=== PATIENT | female | born 1940 | race Caucasian/White ===

== ENCOUNTER 2020-10-24 10:28 | Observation (INO) | payer MEDICARE, OTHER ==
[~2020-10-24] VITALS: Ht 157.5 cm; Wt 47.1 kg
--- NOTE | 2020-10-24 12:04 | ED Integumentary General ---
General Chief Complaint: Skin/Wound Problems Stated Complaint: LEISON ON LEFT SIDE Nursing Triage Note: PT HAS LESION TO LEFT LATERAL BREAST THAT SHE STATES STARTED DRAINING YESTERDAY. Source: patient, family Exam Limitations: no limitations History of Present Illness Date Seen by Provider: Oct 24, 2020 Time Seen by Provider: 11:59 Initial Comments This is an 80-year-old female who presents to the ER with complaints of abscess and drainage of her left lateral breast. States that this has been an ongoing issue since around December of last year. She has been given multiple antibiotics which she states has made her very sick and was unable to take them. When she notified her primary care provider in April of 2020, they said there is nothing more they can do. States this week the area has began to swell even mor e and began draining again. States she has never had ultrasound or mammography. She denies fever, chills, cough, shortness of breath, nausea, vomiting, diarrhea. Currently denies pain. Allergies and Home Medications Allergies Coded Allergies: ciprofloxacin (Verified Allergy, Unknown, 10/24/20) codeine (Verified Allergy, Unknown, 10/24/20) doxycycline (Verified Allergy, Unknown, 10/24/20) Home Medications Ibuprofen 200 Mg Tablet, 600 MG PO Q6H PRN for PAIN-MILD (1-4), (Reported) TAKES 3 (200MG) TABLETS Last Action: Reviewed Patient Home Medication List Home Medication List Reviewed: Yes Review of Systems Review of Systems Constitutional: no symptoms reported EENTM: no symptoms reported Respiratory: no symptoms reported Cardiovascular: no symptoms reported Gastrointestinal: no symptoms reported Genitourinary: no symptoms reported Musculoskeletal: see HPI Skin: see HPI Endocrine: No Symptoms Reported Hematologic/Lymphatic: No Symptoms Reported Past Iylfwtz-Mpgjuy-Cjytqr Hx Patient Social History Alcohol Use: Denies Use Smoking Status: Never a Smoker Recent Infectious Disease Expo: No Recent Hopitalizations: No Seasonal Allergies Seasonal Allergies: No Past Medical History Surgeries: Yes Orthopedic Respiratory: No Cardiac: No Neurological: No Genitourinary: No Gastrointestinal: No Musculoskeletal: No Endocrine: No HEENT: Yes Cataract Cancer: No Psychosocial: No Integumentary: No Blood Disorders: No Physical Exam Vital Signs Vital Signs - First Documented 10/24/20 10:56 Temp 36.1 Pulse 94 Resp 16 Capillary Refill : Less Than 3 Seconds General Appearance: WD/WN, no apparent distress HEENT: PERRL/EOMI, normal ENT inspection, pharynx normal Neck: full range of motion, normal inspection Cardiovascular: regular rate, rhythm, no edema, no murmur Respiratory: lungs clear, normal breath sounds Gastrointestinal: normal bowel sounds, non tender, soft Extremities: normal range of motion, non-tender, normal inspection Neurologic/Psychiatric: no motor/sensory deficits, alert, normal mood/affect, oriented x 3 Skin: normal color, warm/dry Skin Problem Location: generalized, other (left breast 3 o'clock ) Skin Problem Character: other (diffuse erythema, swelling along left lateral breast into axillae and chest wall. Golf ball size red/pink ulcer. ) Lymphatic: axilla node tender (L) Progress/Results/Core Measures Results/Orders Lab Results Laboratory Tests Test 10/24/20 11:50 10/24/20 13:35 Range/Units White Blood Count 7.7 4.3-11.0 10^3/uL Red Blood Count 4.31 3.80-5.11 10^6/uL Hemoglobin 13.0 11.5-16.0 g/dL Hematocrit 39 35-52 % Mean Corpuscular Volume 90 80-99 fL Mean Corpuscular Hemoglobin 30 25-34 pg Mean Corpuscular Hemoglobin Concent 33 32-36 g/dL Red Cell Distribution Width 12.8 10.0-14.5 % Platelet Count 205 130-400 10^3/uL Mean Platelet Volume 11.0 9.0-12.2 fL Immature Granulocyte % (Auto) 0 % Neutrophils (%) (Auto) 73 42-75 % Lymphocytes (%) (Auto) 15 12-44 % Monocytes (%) (Auto) 11 0-12 % Eosinophils (%) (Auto) 0 0-10 % Basophils (%) (Auto) 0 0-10 % Neutrophils # (Auto) 5.7 1.8-7.8 10^3/uL Lymphocytes # (Auto) 1.1 1.0-4.0 10^3/uL Monocytes # (Auto) 0.8 0.0-1.0 10^3/uL Eosinophils # (Auto) 0.0 0.0-0.3 10^3/uL Basophils # (Auto) 0.0 0.0-0.1 10^3/uL Immature Granulocyte # (Auto) 0.0 0.0-0.1 10^3/uL Sodium Level 137 135-145 MMOL/L Potassium Level 3.7 3.6-5.0 MMOL/L Chloride Level 102 98-107 MMOL/L Carbon Dioxide Level 24 21-32 MMOL/L Anion Gap 11 5-14 MMOL/L Blood Urea Nitrogen 6 L 7-18 MG/DL Creatinine 0.71 0.60-1.30 MG/DL Estimat Glomerular Filtration Rate > 60 BUN/Creatinine Ratio 8 Glucose Level 99 70-105 MG/DL Calcium Level 9.9 8.5-10.1 MG/DL Corrected Calcium 9.7 8.5-10.1 MG/DL Total Bilirubin 0.7 0.1-1.0 MG/DL Aspartate Amino Transf (AST/SGOT) 25 5-34 U/L Alanine Aminotransferase (ALT/SGPT) 22 0-55 U/L Alkaline Phosphatase 99 40-136 U/L Total Protein 8.7 H 6.4-8.2 GM/DL Albumin 4.3 3.2-4.5 GM/DL Lactic Acid Level 1.73 0.50-2.00 MMOL/L My Orders Orders - LAUREN BEACH MINERALOGY PROFESSOR Cbc With Automated Diff (10/24/20 12:04) Comprehensive Metabolic Panel (10/24/20 12:04) Us Breast Complete Left (10/24/20 12:04) Ct Chest W (10/24/20 13:22) Lactic Acid Analyzer (10/24/20 13:22) Blood Culture (10/24/20 13:22) Iohexol Injection (Omnipaque 350 Mg/Ml 1 (10/24/20 13:30) Di Iv Start (Assessment) .IV start (10/24/20 13:27) Received Contrast (Hold Metformin- Contr (10/24/20 13:30) Sodium Chloride Flush (Catheter Flush Sy (10/24/20 13:30) Ns (Ivpb) (Sodium Chloride 0.9% Ivpb Bag (10/24/20 13:30) Medications Given in ED Current Medications Medications Dose Ordered Sig/Kimberlee Route Start Time Stop Time Status Last Admin Dose Admin Iohexol 75 ml ONCE ONCE IV 10/24/20 13:30 10/24/20 13:31 DC 10/24/20 14:34 58 ML Sodium Chloride 10 ml NEEDED PRN IV 10/24/20 13:30 10/24/20 14:34 10 ML Sodium Chloride 100 ml ONCE ONCE IV 10/24/20 13:30 10/24/20 13:31 DC 10/24/20 14:34 80 ML Vital Signs/I&O 10/24/20 10:56 Temp 36.1 Pulse 94 Resp 16 B/P (MAP) Diagnostic Imaging Diagonstic Imaging: Ultrasound Comments [facility] [place] [place] NAME: KORY FAJARDO [facility] REC#: [id number] PT STATUS: REG ER : 1940 PHYSICIAN: LAUREN BEACH APRN ADMIT DATE: 10/24/20/ER Draft Date of Exam:10/24/20 US BREAST COMPLETE LEFT INDICATION: Left breast mass. FINDINGS: Sonographic interrogation of the area of mass in the left breast demonstrates a large solid mass at the 1-2 o'clock location of the left breast measuring approximately 11 cm x 4 cm x 5 cm. This extends to the skin surface. There is internal vascularity and findings are suggestive of a large breast neoplasm. Evaluation of the left axilla does show numerous enlarged left axillary lymph nodes with the largest measuring 1.8 x 2.1 cm. The findings are concerning for metastatic disease. IMPRESSION: Large left breast mass concerning for breast neoplasm with enlarged left axillary lymph nodes consistent with axillary metastatic disease. The lesion in the breast would be amenable to ultrasound-guided core biopsy. ACR BI-RADS Category 4: Suspicious abnormality. Dictated on workstation # [id number] Dict: 10/24/20 1301 Trans: 10/24/20 1309 [id number] Interpreted by: MARC DIAZ MD Electronically signed by: Reviewed: Reviewed by Me Diagonstic Imaging: CT Plain Films/CT/US/NM/MRI: chest Comments [facility] [place] [place] NAME: KORY FAJARDO [facility] REC#: [id number] PT STATUS: ADM Lazaro : 1940 PHYSICIAN: LAUREN BEACH APRN ADMIT DATE: 10/24/20/4TH Draft Date of Exam:10/24/[address] CHEST W TECHNIQUE: Multiple contiguous axial images were obtained through the chest with the use of intravenous contrast. All CT scans use one or more of the following dose optimizing techniques: automated exposure control, MA and/or KvP adjustment based on a patient size and exam type, or iterative reconstruction. INDICATION: Left breast mass. COMPARISON: Left breast ultrasound from earlier same day. FINDINGS: Lungs and airway: No endoluminal nodule within the trachea. No pulmonary mass or nodule to be suspicious for pulmonary metastases. Pleura: No pleural effusion or pneumothorax. Heart and mediastinum: Large centrally necrotic mass within the lateral left breast measures 5.4 x 4.2 x 7.3 cm. There are multiple enlarged level 1 left axillary lymph nodes. There is also a level 2 lymph node measuring 1.5 x 1.5 cm in the left axilla. No supraclavicular lymphadenopathy. No mediastinal or hilar lymphadenopathy. Heart is normal in size without pericardial effusion. Upper abdomen: 2 large heterogeneous enhancing masses are present in the right hepatic lobe. The larger of the 2 measures 5.5 x 4.2 cm. Musculoskeletal: No lytic or blastic skeletal lesions. IMPRESSION: 1. Large left breast mass has central necrosis and is most compatible primary breast cancer. 2. Two large masses within the right hepatic lobe of the liver highly likely due to distant metastases. 3. Regional metastases in the left axilla with enlarged level 1 and level 2 lymph nodes. Dictated on workstation # [id number] Dict: 10/24/20 1453 Trans: 10/24/20 1504 [id number] Interpreted by: TASIA GOMEZ MD Electronically signed by: Reviewed: Reviewed by La Departure Communication (Admissions) Time/Spoke to Admitting Phy: 14:[address] Varghese. Accepted patient for observation admission. Time/Spoke to Consulting Phy: 14:[address] Gamble. Will consult. Impression Primary Impression: Cellulitis of breast Additional Impression: Mass of left breast Disposition: ADMITTED INPATIENT Condition: Stable Admissions Decision to Admit Reason: Admit from ER (General) Decision to Admit/Date: Oct 24, 2020 Time/Decision to Admit Time: 14:02 Copy Copies To 1: EMILY GAMBLE STORMY D MINERALOGY PROFESSOR Oct 24, 2020 12:04
[2020-10-24 12:14] LABS: BASOPHILS % (AUTO) 0 % (0-10); EOSINOPHILS % (AUTO) 0 % (0-10); HEMATOCRIT 39 % (35-52); LYMPHOCYTES # (AUTO) 1.1 10^3/uL (1.0-4.0); LYMPHOCYTES % (AUTO) 15 % (12-44); MEAN CORPUSCULAR HEMOGLOBIN 30 pg (25-34); MEAN CORPUSCULAR HGB CONC 33 g/dL (32-36); MEAN CORPUSCULAR VOLUME 90 fL (80-99); MONOCYTES # (AUTO) 0.8 10^3/uL (0.0-1.0); MONOCYTES % (AUTO) 11 % (0-12); NEUTROPHILS # (AUTO) 5.7 10^3/uL (1.8-7.8); NEUTROPHILS % (AUTO) 73 % (42-75); PLATELET COUNT 205 10^3/uL (130-400); WHITE BLOOD COUNT 7.7 10^3/uL (4.3-11.0)
[2020-10-24 12:19] LABS: ALBUMIN 4.3 GM/DL (3.2-4.5)
[2020-10-24 12:20] LABS: CHLORIDE 102 MMOL/L (98-107); POTASSIUM 3.7 MMOL/L (3.6-5.0); SODIUM 137 MMOL/L (135-145)
[2020-10-24 12:21] LABS: CALCIUM 9.9 MG/DL (8.5-10.1)
[2020-10-24 12:22] LABS: GLUCOSE 99 MG/DL (70-105); TOTAL PROTEIN 8.7 GM/DL (6.4-8.2)
[2020-10-24 12:23] LABS: CARBON DIOXIDE 24 MMOL/L (21-32)
[2020-10-24 12:24] LABS: BILIRUBIN,TOTAL 0.7 MG/DL (0.1-1.0)
[2020-10-24 12:26] LABS: ALKALINE PHOSPHATASE 99 U/L (40-136); CREATININE SERUM 0.71 MG/DL (0.60-1.30); GFR ESTIMATED > 60
[2020-10-24 12:27] LABS: BUN/CREATININE RATIO 8
[2020-10-24 12:29] LABS: ALANINE AMINOTRANSFERASE 22 U/L (0-55)
--- NOTE | 2020-10-24 13:10 | Diagnostic Imaging Report ---
INDICATION: Left breast mass. FINDINGS: Sonographic interrogation of the area of mass in the left breast demonstrates a large solid mass at the 1-2 o'clock location of the left breast measuring approximately 11 cm x 4 cm x 5 cm. This extends to the skin surface. There is internal vascularity and findings are suggestive of a large breast neoplasm. Evaluation of the left axilla does show numerous enlarged left axillary lymph nodes with the largest measuring 1.8 x 2.1 cm. The findings are concerning for metastatic disease. IMPRESSION: Large left breast mass concerning for breast neoplasm with enlarged left axillary lymph nodes consistent with axillary metastatic disease. The lesion in the breast would be amenable to ultrasound-guided core biopsy. ACR BI-RADS Category 4: Suspicious abnormality. Dictated by: Dictated on workstation # [id number]
[2020-10-24] MEDS ORDERED: IOHEXOL 350 MG/ML 100 ML (OMNIPAQUE 350) VIAL IV ONE (13:30)
[2020-10-24] MEDS ORDERED: HOLD METFORMIN - RECEIVED CONTRAST 20 ML VIAL IV SCH (13:30)
[2020-10-24] MEDS ORDERED: NS 100 ML (IVPB) BAG IV ONE (13:30)
[2020-10-24] MEDS ORDERED: CATHETER FLUSH 10 ML SYR IV PRN (13:30)
[2020-10-24] MEDS ORDERED: IBUPROFEN TABLET 200 MG TAB PO PRN (15:00)
[2020-10-24] MEDS ORDERED: ACETAMINOPHEN 325 MG TABLET PO PRN (15:00)
[2020-10-24] MEDS ORDERED: ENOXAPARIN 30 MG/0.3 ML (LOVENOX) SYR SC SCH (15:00)
--- NOTE | 2020-10-24 15:04 | Diagnostic Imaging Report ---
CT CHEST W TECHNIQUE: Multiple contiguous axial images were obtained through the chest with the use of intravenous contrast. All CT scans use one or more of the following dose optimizing techniques: automated exposure control, MA and/or KvP adjustment based on a patient size and exam type, or iterative reconstruction. INDICATION: Left breast mass. COMPARISON: Left breast ultrasound from earlier same day. FINDINGS: Lungs and airway: No endoluminal nodule within the trachea. No pulmonary mass or nodule to be suspicious for pulmonary metastases. Pleura: No pleural effusion or pneumothorax. Heart and mediastinum: Large centrally necrotic mass within the lateral left breast measures 5.4 x 4.2 x 7.3 cm. There are multiple enlarged level 1 left axillary lymph nodes. There is also a level 2 lymph node measuring 1.5 x 1.5 cm in the left axilla. No supraclavicular lymphadenopathy. No mediastinal or hilar lymphadenopathy. Heart is normal in size without pericardial effusion. Upper abdomen: 2 large heterogeneous enhancing masses are present in the right hepatic lobe. The larger of the 2 measures 5.5 x 4.2 cm. Musculoskeletal: No lytic or blastic skeletal lesions. IMPRESSION: 1. Large left breast mass has central necrosis and is most compatible primary breast cancer. 2. Two large masses within the right hepatic lobe of the liver highly likely due to distant metastases. 3. Regional metastases in the left axilla with enlarged level 1 and level 2 lymph nodes. Dictated by: Dictated on workstation # [id number]
[2020-10-24 15:05] VITALS: BP 182/96
[2020-10-24] MEDS ORDERED: IBUP-2473 PO (15:15)
[2020-10-24 15:30] VITALS: BP 182/96
[2020-10-24] MEDS ORDERED: diphenhydrAMINE 25 MG TAB (BENADRYL) PO PRN (15:45)
[2020-10-24] MEDS: ceFAZolin 1,000 MG/SWFI 10 ML IV PUSH IV SCH ×4 (16:05→22:18)
[2020-10-24] MEDS: NS IV 1000 ML 1,000 ML IV SCH ×2 (16:05→23:20)
[2020-10-24 16:22] VITALS: BP 182/96
--- NOTE | 2020-10-24 18:20 | Consultation - Surgery ---
History of Present Illness History of Present Illness Patient Consulted On(inga/time) 10/24/20 18:14 Time Seen by Provider: 17:59 History of Present Illness Surgery asked to consult regarding Left breast mass, r/o abscess. HPI per ED: This is an 80-year-old female who presents to the ER with com plaints of abscess and drainage of her left lateral breast. States that this has been an ongoing issue since around December of last year. She has been given multiple antibiotics which she states has made her very sick and was unable to take them. When she notified her primary care provider in April of 2020, they said there is nothing more they can do. States this week the area has began to swell even more and began draining again. States she has never had ultrasound or mammography. She denies fever, chills, cough, shortness of breath, nausea, vomiting, diarrhea. Currently denies pain. When I spoke to pt she states it started with a "tick bite". Got a little better and then a few months ago at primary care they told her they couldn't do anything about the cellulitis. She thought that the raised lump and firmness have only been there "3 weeks". When I asked her and her daughter what they thought it could be; they both said cancer. Pt has very little pain in the area and stated it only started draining because she carried around a ladder yesterday. Allergies and Home Medications Allergies Coded Allergies: ciprofloxacin (Verified Allergy, Unknown, 10/24/20) codeine (Verified Allergy, Unknown, 10/24/20) doxycycline (Verified Allergy, Unknown, 10/24/20) Home Medications Ibuprofen 200 Mg Tablet, 600 MG PO Q6H PRN for PAIN-MILD (1-4), (Reported) TAKES 3 (200MG) TABLETS Last Action: Reviewed Patient Home Medication List Home Medication List Reviewed: Yes Past Oamvplm-Odgltz-Jkedhx Hx Patient Social History Smoking Status: Never a Smoker Recent Hopitalizations: No Alcohol Use?: No Have you traveled recently?: No Seasonal Allergies Seasonal Allergies: No Surgeries History of Surgeries: Yes Surgeries: Orthopedic Respiratory History of Respiratory Disorde: No Cardiovascular History of Cardiac Disorders: No Neurological History of Neurological Disord: No Genitourinary History of Genitourinary Disor: No Gastrointestinal History of Gastrointestinal Di: No Musculoskeletal History of Musculoskeletal Dis: No Endocrine History of Endocrine Disorders: No HEENT History of HEENT Disorders: Yes HEENT Disorders: Cataract Cancer History of Cancer: No Psychosocial History of Psychiatric Problem: No Integumentary History of Skin or Integumenta: No Blood Transfusions History of Blood Disorders: No Family Medical History Significant Family History: Cancer (Father of colon cancer, she wasn't sure what her mother of ( at 54) she states she was too young to remember. Brother had prostate CA. Daughter suggested her grandmother of breast cancer and pt said no; it wasn't that.) Review of Systems-General Constitutional: malaise, weight loss (at least 20lbs since last december, admits to decreased appetite) EENTM: vision loss, dental problems; No mouth pain, No mouth swelling, No epistaxis Respiratory: No cough, No dyspnea on exertion Cardiovascular: No chest pain, No edema, No palpitations Gastrointestinal: No abdominal pain, No jaundice; loss of appetite; No nausea, No vomiting Genitourinary: No dysuria, No frequency, No hematuria; other (recently treated for UTI) Musculoskeletal: back pain, joint pain, joint swelling, muscle stiffness Skin: No change in color, No change in hair/nails Psychiatric/Neurological: Denies Anxiety, Denies Depressed, Denies Seizure, Denies Tremors Other pt denies any hx of abnormal bleeding or bruising Physical Exam-General Problems Physical Exam Vital Signs Vital Signs - First Documented 10/24/20 10/24/20 10/24/20 10:56 14:37 15:05 Temp 36.1 Pulse 94 Resp 16 B/P (MAP) 178/100 Pulse Ox 98 O2 Delivery Room Air Capillary Refill : Less Than 3 Seconds General Appearance: WD/WN, no apparent distress, thin Eyes: Bilateral Eye PERRL, Bilateral Eye EOMI HEENT: pharynx normal; No scleral icterus (R), No scleral icterus (L); other (upper and lower dentures) Neck: non-tender, supple Respiratory: lungs clear, normal breath sounds, no respiratory distress, no accessory muscle use Cardiovascular: regular rate, rhythm, no murmur Gastrointestinal: non tender, soft, no organomegaly Genital/Rectal: other (Breast exam done with nurse in the room, pt has golf ball size mass protruding almost through skin and firm area above and below this into the axilla, mass is in axillary tail of breast tissue. Breast itself is soft with no masses) Back: no CVA tenderness, no vertebral tenderness Extremities: no pedal edema, no calf tenderness, normal capillary refill Neurologic/Psychiatric: wedger machine II-XII nml as tested, alert, normal mood/affect, oriented x 3 Skin: normal color, warm/dry Lymphatic: no adenopathy (neck or groin), axilla node tender (L) Data Review Labs Laboratory Tests 10/24/20 11:50: White Blood Count 7.7, Red Blood Count 4.31, Hemoglobin 13.0, Hematocrit 39, Mean Corpuscular Volume 90, Mean Corpuscular Hemoglobin 30, Mean Corpuscular Hemoglobin Concent 33, Red Cell Distribution Width 12.8, Platelet Count 205, Mean Platelet Volume 11.0, Immature Granulocyte % (Auto) 0, Neutrophils (%) (Auto) 73, Lymphocytes (%) (Auto) 15, Monocytes (%) (Auto) 11, Eosinophils (%) (Auto) 0, Basophils (%) (Auto) 0, Neutrophils # (Auto) 5.7, Lymphocytes # (Auto) 1.1, Monocytes # (Auto) 0.8, Eosinophils # (Auto) 0.0, Basophils # (Auto) 0.0, Immature Granulocyte # (Auto) 0.0, Sodium Level 137, Potassium Level 3.7, Chloride Level 102, Carbon Dioxide Level 24, Anion Gap 11, Blood Urea Nitrogen 6L, Creatinine 0.71, Estimat Glomerular Filtration Rate > 60, BUN/Creatinine Ratio 8, Glucose Level 99, Calcium Level 9.9, Corrected Calcium 9.7, Total Bilirubin 0.7, Aspartate Amino Transf (AST/SGOT) 25, Alanine Aminotransferase (ALT/SGPT) 22, Alkaline Phosphatase 99, Total Protein 8.7H, Albumin 4.3 10/24/20 13:35: Lactic Acid Level 1.73 Radiology Date of Exam:10/24/20 US BREAST COMPLETE LEFT INDICATION: Left breast mass. FINDINGS: Sonographic interrogation of the area of mass in the left breast demonstrates a large solid mass at the 1-2 o'clock location of the left breast measuring approximately 11 cm x 4 cm x 5 cm. This extends to the skin surface. There is internal vascularity and findings are suggestive of a large breast neoplasm. Evaluation of the left axilla does show numerous enlarged left axillary lymph nodes with the largest measuring 1.8 x 2.1 cm. The findings are concerning for metastatic disease. IMPRESSION: Large left breast mass concerning for breast neoplasm with enlarged left axillary lymph nodes consistent with axillary metastatic disease. The lesion in the breast would be amenable to ultrasound-guided core biopsy. ACR BI-RADS Category 4: Suspicious abnormality. Dictated by: Dictated on workstation # [id number] Dict: 10/24/20 1301 Trans: 10/24/20 1615 [id number] Interpreted by: MARC DIAZ MD Electronically signed by: MARC DIAZ MD 10/24/20 1613 Date of Exam:10/24/[address] CHEST W TECHNIQUE: Multiple contiguous axial images were obtained through the chest with the use of intravenous contrast. All CT scans use one or more of the following dose optimizing techniques: automated exposure control, MA and/or KvP adjustment based on a patient size and exam type, or iterative reconstruction. INDICATION: Left breast mass. COMPARISON: Left breast ultrasound from earlier same day. FINDINGS: Lungs and airway: No endoluminal nodule within the trachea. No pulmonary mass or nodule to be suspicious for pulmonary metastases. Pleura: No pleural effusion or pneumothorax. Heart and mediastinum: Large centrally necrotic mass within the lateral left breast measures 5.4 x 4.2 x 7.3 cm. There are multiple enlarged level 1 left axillary lymph nodes. There is also a level 2 lymph node measuring 1.5 x 1.5 cm in the left axilla. No supraclavicular lymphadenopathy. No mediastinal or hilar lymphadenopathy. Heart is normal in size without pericardial effusion. Upper abdomen: 2 large heterogeneous enhancing masses are present in the right hepatic lobe. The larger of the 2 measures 5.5 x 4.2 cm. Musculoskeletal: No lytic or blastic skeletal lesions. IMPRESSION: 1. Large left breast mass has central necrosis and is most compatible primary breast cancer. 2. Two large masses within the right hepatic lobe of the liver highly likely due to distant metastases. 3. Regional metastases in the left axilla with enlarged level 1 and level 2 lymph nodes. Dictated by: Dictated on workstation # [id number] Dict: 10/24/20 1453 Trans: 10/24/20 1659 [id number] Interpreted by: TASIA GOMEZ MD Electronically signed by: TASIA GOMEZ MD 10/24/20 9742 Assessment/Plan Assessment/Plan Assessment/Plan Left breast mass - most likely Cancer Liver masses - most likely metastasis Left axillary lymph nodes I discussed with pt and her daughter basically 3 options; 1) do nothing 2) tiffanie- adjuvant chemo to shrink tumor and then surgery 3) surgery. We talked a little about side effects of chemo and her main thing (daughter's also) was quality of life. I told them that first step should be a true-cut biopsy, so that we can get a diagnosis and then go from there. I don't think pt has to stay in hospital for entire work-up. I think she can get sent home and then see me in my office to go over pathology results and discuss all options. They were ok with this plan. EMILY GAMBLE DO Oct 24, 2020 18:20
[2020-10-24 20:55] VITALS: BP 137/82
[2020-10-24 23:37] VITALS: BP 122/70
[2020-10-25 04:07] VITALS: BP 150/75
[2020-10-25] MEDS: ceFAZolin 1,000 MG/SWFI 10 ML IV PUSH IV SCH ×2 (05:54)
[2020-10-25 06:06] LABS: BASOPHILS % (AUTO) 1 % (0-10); EOSINOPHILS # (AUTO) 0.1 10^3/uL (0.0-0.3); EOSINOPHILS % (AUTO) 1 % (0-10); HEMATOCRIT 35 % (35-52); HEMOGLOBIN 11.3 g/dL (11.5-16.0); LYMPHOCYTES # (AUTO) 1.4 10^3/uL (1.0-4.0); LYMPHOCYTES % (AUTO) 23 % (12-44); MEAN CORPUSCULAR HEMOGLOBIN 30 pg (25-34); MEAN CORPUSCULAR HGB CONC 33 g/dL (32-36); MEAN CORPUSCULAR VOLUME 91 fL (80-99); MEAN PLATELET VOLUME 10.8 fL (9.0-12.2); MONOCYTES # (AUTO) 0.8 10^3/uL (0.0-1.0); MONOCYTES % (AUTO) 12 % (0-12); NEUTROPHILS # (AUTO) 3.9 10^3/uL (1.8-7.8); NEUTROPHILS % (AUTO) 63 % (42-75); PLATELET COUNT 187 10^3/uL (130-400); WHITE BLOOD COUNT 6.2 10^3/uL (4.3-11.0)
[2020-10-25 06:20] LABS: CHLORIDE 104 MMOL/L (98-107); POTASSIUM 3.6 MMOL/L (3.6-5.0); SODIUM 137 MMOL/L (135-145)
[2020-10-25 06:21] LABS: GLUCOSE 87 MG/DL (70-105)
[2020-10-25 06:23] LABS: CARBON DIOXIDE 23 MMOL/L (21-32)
[2020-10-25 06:25] LABS: CREATININE SERUM 0.64 MG/DL (0.60-1.30); GFR ESTIMATED > 60
[2020-10-25 06:26] LABS: BUN/CREATININE RATIO 11
[2020-10-25 07:39] VITALS: BP 168/80
[2020-10-25] MEDS ORDERED: CEPH500T PO (10:14)
--- NOTE | 2020-10-25 10:21 | Discharge Inst-Simple/Standard ---
Discharge Inst-Standard Discharge Medications New, Converted or Re-Newed RX: Transmitted to Pharmacy Patient Instructions/Follow Up Plan of Care/Instructions/FU: Please follow up with Dr Stahl and Dr Art as scheduled. Activity as Tolerated: Yes Discharge Diet: No Restrictions Return to The Hospital For: Chest pain, shortness of breath, fever, confusion, BHAVANA STANFORD MD Oct 25, 2020 10:21
--- NOTE | 2020-10-25 10:28 | Short Stay Summary-Hospitalist ---
History of Present Illness HPI/Chief Complaint Pt is an 80yoCF who presented to the ER due to breast wound. She reports it all started back in December and was seen by her PCP. They believed it to be due to a tick bite and shew as treated with antibiotics. Despite this it did not resolve. She followed up with her PCP when she noticed swollen lymph nodes and was tole it was due to the infection. She did not follow up again until she showed her daughter who drove her here for evaluation. Given concern for cellulitis she was admitted for antibiotics. Surgery has already seen her and performed a biopsy. I discussed with Dr Art last night who will see her in follow up but will wait for pathology results. Patient states she has some soreness but otherwise is feeling well and would like to DC home. Source: patient Date Seen 10/25/20 Time Seen by a Provider: 10:15 Attending Physician Bhavana Varghese MD PCP No,Local Physician Referring Physician Date of Admission Oct 24, 2020 at 14:17 Home Medications & Allergies Home Medications Reviewed patient Home Medication Reconciliation performed by pharmacy medication reconciliations assistant technician and/or nursing. Patients Allergies have been reviewed. Allergies Allergies Coded Allergies ciprofloxacin (Verified Allergy, Unknown, 10/24/20) codeine (Verified Allergy, Unknown, 10/24/20) doxycycline (Verified Allergy, Unknown, 10/24/20) Past Rikynpp-Iddeob-Votruy Hx Patient Social History Tobacco Use?: No Smoking Status: Never a Smoker Smokeless Tobacco Frequency: Never a User Use of E-Cig and/or Vaping dev: No Use of E-Cig and/or Vaping Marcus: Never a User Substance use?: No Alcohol Use?: No Pt feels they are or have been: No Immunizations Up To Date Tetanus Booster (TDap): Unknown Hepatitis A: No Hepatitis B: No Seasonal Allergies Seasonal Allergies: No Current Status status: No status: No Advance Directives: No Communicates: Verbally Primary Language: Andorran Preferred Spoken Language: Andorran Is interpretation needed?: No Implanted or Applied Medical D: None Past Medical History Surgeries: Orthopedic Cataract Blood Disorders: No Family Medical History Reviewed Nursing Family Hx Cancer (Father of colon cancer, she wasn't sure what her mother of ( at 54) she states she was too young to remember. Brother had prostate CA. Daughter suggested her grandmother of breast cancer and pt said no; it wasn't that.) Review of Systems Constitutional: No chills, No fever EENTM: no symptoms reported Respiratory: no symptoms reported Cardiovascular: no symptoms reported Gastrointestinal: no symptoms reported Genitourinary: no symptoms reported Musculoskeletal: no symptoms reported Skin: see HPI Psychiatric/Neurological: No Symptoms Reported Physical Exam Physical Exam Vital Signs Vital Signs - First Documented 10/24/20 10/24/20 10/24/20 10:56 14:37 15:05 Temp 36.1 Pulse 94 Resp 16 B/P (MAP) 178/100 Pulse Ox 98 O2 Delivery Room Air Capillary Refill : Less Than 3 Seconds Height, Weight, BMI Height: '" Weight: lbs. oz. kg; 18.98 BMI Method: General Appearance: No Apparent Distress, WD/WN, Thin Eyes: Bilateral Eye PERRL, Bilateral Eye EOMI Neck: Normal Inspection, Supple Respiratory: Lungs Clear, No Respiratory Distress Cardiovascular: Regular Rate, Rhythm, No Murmur Gastrointestinal: Normal Bowel Sounds, Non Tender, Soft Neurologic/Psychiatric: Alert, Oriented x3 Skin: Normal Color, Other (large fungating mass with local eythema but no warmth or spreading on right lateral breast) Results Results/Procedures Labs Laboratory Tests 10/24/20 11:50 10/25/20 05:46 Patient resulted labs reviewed. Imaging: Reviewed Imaging Report Imaging [facility], [place] NAME: KORY FAJARDO [facility] REC#: [id number] PT STATUS: ADM Lazaro : 1940 PHYSICIAN: LAUREN BEACH APRN ADMIT DATE: 10/24/20 Signed Date of Exam:10/24/20 US BREAST COMPLETE LEFT INDICATION: Left breast mass. FINDINGS: Sonographic interrogation of the area of mass in the left breast demonstrates a large solid mass at the 1-2 o'clock location of the left breast measuring approximately 11 cm x 4 cm x 5 cm. This extends to the skin surface. There is internal vascularity and findings are suggestive of a large breast neoplasm. Evaluation of the left axilla does show numerous enlarged left axillary lymph nodes with the largest measuring 1.8 x 2.1 cm. The findings are concerning for metastatic disease. IMPRESSION: Large left breast mass concerning for breast neoplasm with enlarged left axillary lymph nodes consistent with axillary metastatic disease. The lesion in the breast would be amenable to ultrasound-guided core biopsy. ACR BI-RADS Category 4: Suspicious abnormality. Dictated by: Dictated on workstation # [id number] Dict: 10/24/20 1301 Trans: 10/24/20 1615 [id number] Interpreted by: MARC DIAZ MD Electronically signed by: MARC DIAZ MD 10/24/20 1615 [facility], [place] NAME: KORY FAJARDO [facility] REC#: [id number] PT STATUS: ADM Lazaro : 1940 PHYSICIAN: LAUREN BEACH APRN ADMIT DATE: 10/24/20 Signed Date of Exam:10/24/[address] CHEST W TECHNIQUE: Multiple contiguous axial images were obtained through the chest with the use of intravenous contrast. All CT scans use one or more of the following dose optimizing techniques: automated exposure control, MA and/or KvP adjustment based on a patient size and exam type, or iterative reconstruction. INDICATION: Left breast mass. COMPARISON: Left breast ultrasound from earlier same day. FINDINGS: Lungs and airway: No endoluminal nodule within the trachea. No pulmonary mass or nodule to be suspicious for pulmonary metastases. Pleura: No pleural effusion or pneumothorax. Heart and mediastinum: Large centrally necrotic mass within the lateral left breast measures 5.4 x 4.2 x 7.3 cm. There are multiple enlarged level 1 left axillary lymph nodes. There is also a level 2 lymph node measuring 1.5 x 1.5 cm in the left axilla. No supraclavicular lymphadenopathy. No mediastinal or hilar lymphadenopathy. Heart is normal in size without pericardial effusion. Upper abdomen: 2 large heterogeneous enhancing masses are present in the right hepatic lobe. The larger of the 2 measures 5.5 x 4.2 cm. Musculoskeletal: No lytic or blastic skeletal lesions. IMPRESSION: 1. Large left breast mass has central necrosis and is most compatible primary breast cancer. 2. Two large masses within the right hepatic lobe of the liver highly likely due to distant metastases. 3. Regional metastases in the left axilla with enlarged level 1 and level 2 lymph nodes. Dictated by: Dictated on workstation # [id number] Dict: 10/24/20 1453 Trans: 10/24/201658 [id number] Interpreted by: TASIA GOMEZ MD Electronically signed by: TASIA GOMEZ MD 10/24/20 1653 Short Stay Diagnosis Discharge Diagnosis-Short Stay Admission Diagnosis Metastatic breast cancer Final Discharge Diagnosis Metastatic breast cancer Conclusion Plan Metastatic breast cancer USG confirms likely malignancy CT Chest and Abdomen revealed breast mass, hepatic lesion, and axillary lymphadenopathy Patient aware of likelihood of cancer and need to follow up, daughter at bedside to hear this as well Biopsied by Dr Stahl today, path sent Discussed with pt that Dr Art is aware and will follow patient, patient is agreeable and prefers this so she can have all the information at once Given biopsy today will cover for a couple of days with abx DC home per patient request. BHAVANA VARGHESE MD Oct 25, 2020 10:28
--- NOTE | 2020-10-25 13:35 | Progress Note-Post Operative ---
Post-Operative Progess Note Surgeon (s)/Overlock Sewing Machine Operator (s) Surgeon EMILY GAMBLE DO Overlock Sewing Machine Operator: none Pre-Operative Diagnosis L breast mass Post-Operative Diagnosis same pending path Procedure & Operative Findings Date of Procedure 10/25/20 Procedure Performed/Findings Left breast, Core needle biopsy Anesthesia Type none Estimated Blood Loss Estimated blood loss (mL): scant Specimens/Packing Specimens Removed core needle bx x 2 EMILY GAMBLE DO Oct 25, 2020 13:35
--- NOTE | 2020-10-25 13:38 | Progress Note - Surgery ---
Subjective Time Seen by a Provider: 09:04 Subjective/Events-last exam Pt seen and examined, no changes; but states breast is a little more sore because "everyone has been pushing on it". Review of Systems General: Fatigue Pulmonary: No Dyspnea, No Cough Cardiovascular: No: Chest Pain Gastrointestinal: No: Nausea, Vomiting, Abdominal Pain Focused Exam Lactate Level 10/24/20 13:35: Lactic Acid Level 1.73 Objective Exam Vital Signs Date Time Temp Pulse Resp B/P (MAP) Pulse Ox O2 Delivery O2 Flow Rate FiO2 10/25/20 11:10 10/25/20 08:00 Room Air 10/25/20 07:39 35.8 71 20 168/80 (109) 97 Room Air 10/25/20 06:41 96 Room Air 10/25/20 04:07 36.2 82 20 150/75 (100) 97 Room Air 10/24/20 23:37 36.4 79 20 122/70 (87) 97 Room Air 10/24/20 20:55 36.4 88 20 137/82 (100) 95 Room Air 10/24/20 20:00 Room Air 10/24/20 16:22 36.6 95 97 10/24/20 15:30 36.6 95 20 182/96 (124) 97 Room Air 10/24/20 15:13 97 Room Air 10/24/20 15:05 36.6 95 20 182/96 (124) 97 Room Air 10/24/20 14:37 88 16 178/100 98 I & O 10/25/20 06:59 Intake Total 2400 ml Balance 2400 ml Capillary Refill : Less Than 3 Seconds General Appearance: No Apparent Distress, Thin HEENT: PERRL/EOMI, Moist Mucous Membranes Respiratory: Lungs Clear, Normal Breath Sounds, No Accessory Muscle Use, No Respiratory Distress Cardiovascular: Regular Rate, Rhythm, No Murmur Gastrointestinal: non tender, soft, no organomegaly Skin: Other (Left breast has erythema, large fungating mass) Lymphatic: Axilla Node Tender (L) Results Lab Laboratory Tests 10/25/20 05:46: White Blood Count 6.2, Red Blood Count 3.81, Hemoglobin 11.3L, Hematocrit 35, Mean Corpuscular Volume 91, Mean Corpuscular Hemoglobin 30, Mean Corpuscular Hemoglobin Concent 33, Red Cell Distribution Width 12.8, Platelet Count 187, Mean Platelet Volume 10.8, Immature Granulocyte % (Auto) 0, Neutrophils (%) (Auto) 63, Lymphocytes (%) (Auto) 23, Monocytes (%) (Auto) 12, Eosinophils (%) (Auto) 1, Basophils (%) (Auto) 1, Neutrophils # (Auto) 3.9, Lymphocytes # (Auto) 1.4, Monocytes # (Auto) 0.8, Eosinophils # (Auto) 0.1, Basophils # (Auto) 0.0, Immature Granulocyte # (Auto) 0.0, Sodium Level 137, Potassium Level 3.6, Chloride Level 104, Carbon Dioxide Level 23, Anion Gap 10, Blood Urea Nitrogen 7, Creatinine 0.64, Estimat Glomerular Filtration Rate > 60, BUN/Creatinine Ratio 11, Glucose Level 87, Calcium Level 9.0 Assessment/Plan Assessment/Plan Assessment/Plan Left breast mass - most likely Cancer Liver masses - most likely metastasis Left axillary lymph nodes I will perform a true-cut biopsy this am, so that we can get a diagnosis and then go from there. Pt to follow up with me in my office to go over pathology results and discuss all options. True cut biopsy done and walked down to pathology by me. EMILY GAMBLE DO Oct 25, 2020 13:38
--- NOTE | 2020-10-25 18:02 | OPERATIVE REPORT ---
DATE OF SERVICE: PREOPERATIVE DIAGNOSIS: Left breast mass. POSTOPERATIVE DIAGNOSIS: Left breast mass, pending pathology. PROCEDURE: Core needle biopsy of left breast. SURGEON: Joseph Stahl DO SEAFOOD PACKER: None. ANESTHESIA: None. SPECIMEN: Core needle biopsy x2. BLOOD LOSS: Scant. FLUIDS: None. INDICATION FOR PROCEDURE: The patient is an 80-year-old female who has a left breast mass with a fungating lesion, needs a biopsy for diagnosis and then treatment plan. FINDINGS: The patient had a Cm-Cut or core needle biopsy performed without any difficulty, tolerated this well. PROCEDURE NOTE: After informed consent was obtained, the patient was in her bed, the area was quickly prepped and then using a 14-gauge Cm-Cut needle, inserted into just to the lateral aspect of the fungating mass and then in towards the fullness and mass in her breast. The Cm-Cut biopsy was advanced and then shot, then removed this and then placed this core biopsy on a Telfa and then did another Cm-Cut biopsy in a slightly different direction to get another good specimen. This was then placed on Telfa, placing the specimen jar. Area was then carefully cleaned and dried and pressure dressing placed. The patient tolerated the procedure and I walked down the specimen to the lab myself. Job ID: [id number] DocumentID: [id number] Dictated Date: 10/25/2020 13:40:33 Casino Floor Supervisor Date: 10/25/2020 18:02:00 Dictated By: JOSEPH STAHL DO [facility]
== END 2020-10-25 10:28 | disposition home or self-care (01) ==
LOC: ER 10:34 → UNDOADMOB 14:17 → 4TH 14:17 → UNDODISOB 10-25 11:10
PROVIDERS: ADMIT Family Medicine; ATTEND Family Medicine
DX: C50.912 Malignant neoplasm of unspecified site of left female breast (principal); C79.9 Secondary malignant neoplasm of unspecified site; Z79.899 Other long term (current) drug therapy
CPT/HCPCS: 19100; 71260; 76641; 80048; 80053; 83605; 85025 ×2; 87040; 88305; 88360; 94760; 99284; G0378; 36415

== ENCOUNTER → 2020-11-10 | Outpatient (CLI) | payer MEDICARE, OTHER ==
[~2020-11-10] MED LIST: BARIUM SUSPENSION 2.1% (VANILLA SILQ) 450 ML PO ONE; CEPH500T PO; HOLD METFORMIN - RECEIVED CONTRAST 20 ML VIAL IV SCH; IBUP-2473 PO; IOHEXOL 350 MG/ML 100 ML (OMNIPAQUE 350) VIAL IV ONE; NS 100 ML (IVPB) BAG IV ONE
[2020-11-10] MEDS: CATHETER FLUSH 10 ML SYR IV PRN ×2 (12:13→12:50)
--- NOTE | 2020-11-10 15:37 | Diagnostic Imaging Report ---
PROCEDURE: CT abdomen with and without contrast. TECHNIQUE: Multiple contiguous axial CT images of the abdomen were obtained prior to and after intravenous administration of iodinated contrast. Auto Exposure Controls were utilized during the CT exam to meet ALARA standards for radiation dose reduction. INDICATION: Left breast neoplasm with secondary neoplasms of the liver as well as intrahepatic bile duct dilatation. Comparison is made with CT chest study from 10/24/2020. Images through the liver demonstrate at least two masses. Largest is in the right lobe at least 4.8 cm in size. There is a lesion medial to this and more posteriorly in the right lobe measuring 3 cm. There is no bile duct dilatation. Gallbladder is unremarkable. The pancreas and spleen are unremarkable. No adrenal mass is detected. Kidneys are unremarkable. Aorta is nonaneurysmal. Small and large bowel loops are normal caliber. No definite central retroperitoneal or mesenteric lymphadenopathy is seen. There is no ascites. IMPRESSION: Liver masses, suspicious for hepatic metastatic disease. Dictated by: Dictated on workstation # [id number]
--- NOTE | 2020-11-10 17:35 | Diagnostic Imaging Report ---
INDICATION: Malignant tumor of female breast. After intravenous administration of 25.7 mCi technetium 99m MDP, whole body anterior and posterior scintigraphic images are obtained. There is normal biodistribution of activity throughout the skeleton. No abnormal area of increased or decreased activity is seen. Uptake is seen in both kidneys with excretion into the urinary bladder. IMPRESSION: No scintigraphic evidence of osseous metastatic disease. Dictated by: Dictated on workstation # [id number]
== END ==
LOC: CARD 12:00
PROVIDERS: ATTEND Internal Medicine Hematology & Oncology
DX: C50.912 Malignant neoplasm of unspecified site of left female breast (principal); C78.7 Secondary malignant neoplasm of liver and intrahepatic bile duct
CPT/HCPCS: 74170; 78306; A9503

== ENCOUNTER 2021-01-19 12:58 | Outpatient (RCR) | payer MEDICARE, OTHER ==
[2020-11-03 11:59] LABS: BASOPHILS % (AUTO) 1 % (0-10); EOSINOPHILS # (AUTO) 0.1 10^3/uL (0.0-0.3); EOSINOPHILS % (AUTO) 1 % (0-10); HEMATOCRIT 40 % (35-52); HEMOGLOBIN 12.6 g/dL (11.5-16.0); LYMPHOCYTES # (AUTO) 1.4 10^3/uL (1.0-4.0); LYMPHOCYTES % (AUTO) 20 % (12-44); MEAN CORPUSCULAR HEMOGLOBIN 29 pg (25-34); MEAN CORPUSCULAR HGB CONC 32 g/dL (32-36); MEAN CORPUSCULAR VOLUME 93 fL (80-99); MEAN PLATELET VOLUME 9.9 fL (9.0-12.2); MONOCYTES # (AUTO) 0.6 10^3/uL (0.0-1.0); MONOCYTES % (AUTO) 9 % (0-12); NEUTROPHILS # (AUTO) 4.7 10^3/uL (1.8-7.8); NEUTROPHILS % (AUTO) 69 % (42-75); PLATELET COUNT 281 10^3/uL (130-400); WHITE BLOOD COUNT 6.9 10^3/uL (4.3-11.0)
[2020-11-03 12:35] LABS: ALANINE AMINOTRANSFERASE 22 U/L (0-55); ALKALINE PHOSPHATASE 129 U/L (40-136); BILIRUBIN,TOTAL 0.4 MG/DL (0.1-1.0); BUN/CREATININE RATIO 18; CALCIUM 10.2 MG/DL (8.5-10.1); CARBON DIOXIDE 29 MMOL/L (21-32); CHLORIDE 101 MMOL/L (98-107); CREATININE SERUM 0.71 MG/DL (0.60-1.30); GFR ESTIMATED > 60; GLUCOSE 93 MG/DL (70-105); POTASSIUM 4.1 MMOL/L (3.6-5.0); SODIUM 138 MMOL/L (135-145); TOTAL PROTEIN 8.8 GM/DL (6.4-8.2)
[2020-11-17 11:07] LABS: BASOPHILS # (AUTO) 0.1 10^3/uL (0.0-0.1); BASOPHILS % (AUTO) 1 % (0-10); EOSINOPHILS # (AUTO) 0.1 10^3/uL (0.0-0.3); EOSINOPHILS % (AUTO) 2 % (0-10); HEMATOCRIT 37 % (35-52); HEMOGLOBIN 11.9 g/dL (11.5-16.0); LYMPHOCYTES # (AUTO) 1.3 10^3/uL (1.0-4.0); LYMPHOCYTES % (AUTO) 19 % (12-44); MEAN CORPUSCULAR HEMOGLOBIN 30 pg (25-34); MEAN CORPUSCULAR HGB CONC 32 g/dL (32-36); MEAN CORPUSCULAR VOLUME 94 fL (80-99); MEAN PLATELET VOLUME 9.8 fL (9.0-12.2); MONOCYTES # (AUTO) 0.7 10^3/uL (0.0-1.0); MONOCYTES % (AUTO) 10 % (0-12); NEUTROPHILS # (AUTO) 4.6 10^3/uL (1.8-7.8); NEUTROPHILS % (AUTO) 68 % (42-75); PLATELET COUNT 243 10^3/uL (130-400); WHITE BLOOD COUNT 6.8 10^3/uL (4.3-11.0)
[2020-11-17 11:27] LABS: ALANINE AMINOTRANSFERASE 25 U/L (0-55); ALBUMIN 3.9 GM/DL (3.2-4.5); ALKALINE PHOSPHATASE 95 U/L (40-136); BILIRUBIN,TOTAL 0.4 MG/DL (0.1-1.0); BUN/CREATININE RATIO 20; CALCIUM 9.6 MG/DL (8.5-10.1); CARBON DIOXIDE 27 MMOL/L (21-32); CHLORIDE 104 MMOL/L (98-107); CREATININE SERUM 0.74 MG/DL (0.60-1.30); GFR ESTIMATED > 60; GLUCOSE 101 MG/DL (70-105); POTASSIUM 3.9 MMOL/L (3.6-5.0); SODIUM 139 MMOL/L (135-145)
[2020-12-14 14:42] LABS: BASOPHILS % (AUTO) 0 % (0-10); EOSINOPHILS # (AUTO) 0.1 10^3/uL (0.0-0.3); EOSINOPHILS % (AUTO) 1 % (0-10); HEMATOCRIT 38 % (35-52); HEMOGLOBIN 12.2 g/dL (11.5-16.0); LYMPHOCYTES # (AUTO) 1.5 10^3/uL (1.0-4.0); LYMPHOCYTES % (AUTO) 20 % (12-44); MEAN CORPUSCULAR HEMOGLOBIN 30 pg (25-34); MEAN CORPUSCULAR HGB CONC 32 g/dL (32-36); MEAN CORPUSCULAR VOLUME 94 fL (80-99); MEAN PLATELET VOLUME 9.7 fL (9.0-12.2); MONOCYTES # (AUTO) 0.8 10^3/uL (0.0-1.0); MONOCYTES % (AUTO) 10 % (0-12); NEUTROPHILS % (AUTO) 67 % (42-75); PLATELET COUNT 247 10^3/uL (130-400); WHITE BLOOD COUNT 7.4 10^3/uL (4.3-11.0)
[2020-12-14 15:02] LABS: BILIRUBIN,TOTAL 0.4 MG/DL (0.1-1.0); CALCIUM 9.9 MG/DL (8.5-10.1); CREATININE SERUM 0.74 MG/DL (0.60-1.30); POTASSIUM 4.3 MMOL/L (3.6-5.0); TOTAL PROTEIN 8.9 GM/DL (6.4-8.2)
[2021-01-11 14:25] LABS: BASOPHILS % (AUTO) 1 % (0-10); EOSINOPHILS # (AUTO) 0.1 10^3/uL (0.0-0.3); EOSINOPHILS % (AUTO) 2 % (0-10); HEMATOCRIT 39 % (35-52); HEMOGLOBIN 12.4 g/dL (11.5-16.0); LYMPHOCYTES # (AUTO) 1.6 10^3/uL (1.0-4.0); LYMPHOCYTES % (AUTO) 23 % (12-44); MEAN CORPUSCULAR HEMOGLOBIN 30 pg (25-34); MEAN CORPUSCULAR HGB CONC 32 g/dL (32-36); MEAN CORPUSCULAR VOLUME 95 fL (80-99); MEAN PLATELET VOLUME 10.1 fL (9.0-12.2); MONOCYTES # (AUTO) 0.7 10^3/uL (0.0-1.0); MONOCYTES % (AUTO) 10 % (0-12); NEUTROPHILS # (AUTO) 4.5 10^3/uL (1.8-7.8); NEUTROPHILS % (AUTO) 65 % (42-75); PLATELET COUNT 237 10^3/uL (130-400); WHITE BLOOD COUNT 6.9 10^3/uL (4.3-11.0)
[2021-01-11 14:47] LABS: BILIRUBIN,TOTAL 0.5 MG/DL (0.1-1.0); CALCIUM 10.2 MG/DL (8.5-10.1); CREATININE SERUM 0.78 MG/DL (0.60-1.30)
[~2021-01-19 12:58] MED LIST changes: -BARIUM SUSPENSION 2.1% (VANILLA SILQ) 450 ML PO ONE; +FULVESTRANT 250 MG/5 ML SYR (CANCER CENTER) IM SCH; -HOLD METFORMIN - RECEIVED CONTRAST 20 ML VIAL IV SCH; -IOHEXOL 350 MG/ML 100 ML (OMNIPAQUE 350) VIAL IV ONE; -NS 100 ML (IVPB) BAG IV ONE
== END 2021-02-01 | disposition home or self-care (01) ==
LOC: ONC 12:58
PROVIDERS: ATTEND Internal Medicine Hematology & Oncology
DX: Z51.11 Encounter for antineoplastic chemotherapy (principal); C50.912 Malignant neoplasm of unspecified site of left female breast; C78.7 Secondary malignant neoplasm of liver and intrahepatic bile duct; R03.0 Elevated blood-pressure reading, without diagnosis of hypertension; Z17.0 Estrogen receptor positive status [ER+]; Z79.811 Long term (current) use of aromatase inhibitors
CPT/HCPCS: 80053; 85025; 86300; 96402; G0463; 99213

== ENCOUNTER 2021-05-11 10:10 | Outpatient (RCR) | payer MEDICARE, OTHER ==
[2021-02-16 11:06] LABS: BASOPHILS % (AUTO) 1 % (0-10); EOSINOPHILS # (AUTO) 0.1 10^3/uL (0.0-0.3); EOSINOPHILS % (AUTO) 1 % (0-10); HEMATOCRIT 38 % (35-52); HEMOGLOBIN 12.5 g/dL (11.5-16.0); LYMPHOCYTES # (AUTO) 1.8 10^3/uL (1.0-4.0); LYMPHOCYTES % (AUTO) 22 % (12-44); MEAN CORPUSCULAR HEMOGLOBIN 30 pg (25-34); MEAN CORPUSCULAR HGB CONC 33 g/dL (32-36); MEAN CORPUSCULAR VOLUME 92 fL (80-99); MEAN PLATELET VOLUME 9.9 fL (9.0-12.2); MONOCYTES # (AUTO) 0.9 10^3/uL (0.0-1.0); MONOCYTES % (AUTO) 11 % (0-12); NEUTROPHILS # (AUTO) 5.3 10^3/uL (1.8-7.8); NEUTROPHILS % (AUTO) 65 % (42-75); PLATELET COUNT 246 10^3/uL (130-400); WHITE BLOOD COUNT 8.1 10^3/uL (4.3-11.0)
[2021-02-16 11:22] LABS: ALBUMIN 3.8 GM/DL (3.2-4.5); BILIRUBIN,TOTAL 0.5 MG/DL (0.1-1.0); CALCIUM 9.8 MG/DL (8.5-10.1); CREATININE SERUM 0.75 MG/DL (0.60-1.30); POTASSIUM 4.2 MMOL/L (3.6-5.0); TOTAL PROTEIN 8.7 GM/DL (6.4-8.2)
[2021-03-17 10:36] LABS: BASOPHILS % (AUTO) 1 % (0-10); EOSINOPHILS # (AUTO) 0.1 10^3/uL (0.0-0.3); EOSINOPHILS % (AUTO) 1 % (0-10); HEMATOCRIT 38 % (35-52); HEMOGLOBIN 12.4 g/dL (11.5-16.0); LYMPHOCYTES % (AUTO) 30 % (12-44); MEAN CORPUSCULAR HEMOGLOBIN 30 pg (25-34); MEAN CORPUSCULAR HGB CONC 33 g/dL (32-36); MEAN CORPUSCULAR VOLUME 92 fL (80-99); MONOCYTES # (AUTO) 0.7 10^3/uL (0.0-1.0); MONOCYTES % (AUTO) 11 % (0-12); NEUTROPHILS # (AUTO) 3.7 10^3/uL (1.8-7.8); NEUTROPHILS % (AUTO) 57 % (42-75); PLATELET COUNT 260 10^3/uL (130-400); WHITE BLOOD COUNT 6.5 10^3/uL (4.3-11.0)
[2021-03-17 10:54] LABS: ALBUMIN 3.9 GM/DL (3.2-4.5); BILIRUBIN,TOTAL 0.5 MG/DL (0.1-1.0); CALCIUM 9.8 MG/DL (8.5-10.1); CREATININE SERUM 0.77 MG/DL (0.60-1.30); POTASSIUM 3.6 MMOL/L (3.6-5.0); TOTAL PROTEIN 9.3 GM/DL (6.4-8.2)
[2021-05-11 10:37] LABS: BASOPHILS # (AUTO) 0.1 10^3/uL (0.0-0.1); BASOPHILS % (AUTO) 1 % (0-10); EOSINOPHILS # (AUTO) 0.1 10^3/uL (0.0-0.3); EOSINOPHILS % (AUTO) 1 % (0-10); HEMATOCRIT 38 % (35-52); HEMOGLOBIN 12.5 g/dL (11.5-16.0); LYMPHOCYTES # (AUTO) 1.8 10^3/uL (1.0-4.0); LYMPHOCYTES % (AUTO) 22 % (12-44); MEAN CORPUSCULAR HEMOGLOBIN 30 pg (25-34); MEAN CORPUSCULAR HGB CONC 33 g/dL (32-36); MEAN CORPUSCULAR VOLUME 92 fL (80-99); MEAN PLATELET VOLUME 10.5 fL (9.0-12.2); MONOCYTES % (AUTO) 12 % (0-12); NEUTROPHILS % (AUTO) 64 % (42-75); PLATELET COUNT 233 10^3/uL (130-400); WHITE BLOOD COUNT 7.9 10^3/uL (4.3-11.0)
[2021-05-11 10:44] LABS: ALBUMIN 3.8 GM/DL (3.2-4.5); BILIRUBIN,TOTAL 0.7 MG/DL (0.1-1.0); CALCIUM 9.6 MG/DL (8.5-10.1); CREATININE SERUM 0.83 MG/DL (0.60-1.30); POTASSIUM 4.1 MMOL/L (3.6-5.0); TOTAL PROTEIN 9.3 GM/DL (6.4-8.2)
== END 2021-05-12 | disposition still patient (30) ==
LOC: ONC 10:10
PROVIDERS: ATTEND Internal Medicine Hematology & Oncology
DX: Z51.11 Encounter for antineoplastic chemotherapy (principal); C50.912 Malignant neoplasm of unspecified site of left female breast; C78.7 Secondary malignant neoplasm of liver and intrahepatic bile duct; I10 Essential (primary) hypertension
CPT/HCPCS: 80053; 85025; 96402; G0463; 86300; 96372; 99213

== ENCOUNTER 2021-05-17 09:58 | Emergency (ER) | payer MEDICARE, OTHER ==
[~2021-05-17] VITALS: Ht 157 cm; Wt 54.5 kg
[~2021-05-17 09:58] MED LIST changes: -FULVESTRANT 250 MG/5 ML SYR (CANCER CENTER) IM SCH
--- NOTE | 2021-05-17 10:43 | ED Integumentary General ---
General Chief Complaint: Skin/Wound Problems Stated Complaint: L BREAST LESION BLEEDING, Nursing Triage Note: TO ED PER W/C PATIENT HAS A LG TUMOR LOOKING AREA ON L SIDE OF BREAST . SAW DR ANDINO YESTERDAY IS TO HAVE A MASTECTOMY SCHEDULED FOR SATURDAY. [facility] AND TAK[facility] PO MEDS AND IM FOR BREAST CANCER. THIS AM ROLLED OVER IN BED AND TUMOR STARTED BLEEDING ON BLEEDNG ON ADMIT. Source: patient Exam Limitations: no limitations History of Present Illness Date Seen by Provider: May 17, 2021 Time Seen by Provider: 10:30 Initial Comments 80-year-old female with a history of fungating left breast cancer scheduled for mastectomy by Dr. Gamble a week from tomorrow. Complains of bleeding from the left tumor mass today. Held pressure for quite a while but states that there was blood "everywhere". She denies any other symptoms of lightheadedness dizziness, shortness of breath palpitations. No pain. Initial evaluation reveals an area of ulceration in the central lateral aspect of the tumor. It is approximately 1-1/2 x 1/2 cm. Shallow. No active ble eding. Silver nitrate used to cauterize the base of the ulceration. Excellent hemostasis. Wound is dressed with Vaseline gauze and dry gauze. Timing/Duration: this morning Allergies and Home Medications Allergies Coded Allergies: ciprofloxacin (Verified Allergy, Unknown, 10/24/20) codeine (Verified Allergy, Unknown, 10/24/20) doxycycline (Verified Allergy, Unknown, 10/24/20) Patient Home Medication List Home Medication List Reviewed: Yes Cephalexin (Cephalexin) 500 Mg Tablet, 500 MG PO BID Prescribed by: BHAVANA STANFORD on 10/25/20 1014 Ibuprofen (Ibuprofen) 200 Mg Tablet, 600 MG PO Q6H PRN for PAIN-MILD (1-4), (Reported) Entered as Reported by: REFUGIO NEGRO on 10/24/20 1515 Review of Systems Review of Systems Constitutional: see HPI EENTM: no symptoms reported Respiratory: no symptoms reported Cardiovascular: no symptoms reported Gastrointestinal: no symptoms reported Genitourinary: no symptoms reported Musculoskeletal: no symptoms reported Skin: other (bleeding from left breast tumor) Psychiatric/Neurological: Anxiety All Other Systems Reviewed Negative Unless Noted: Yes Past Hrybvxk-Sesdry-Hbidgk Hx Patient Social History Substance use?: No Seasonal Allergies Seasonal Allergies: No Past Medical History Surgeries: Yes Orthopedic Respiratory: No Cardiac: No Neurological: No Genitourinary: No Gastrointestinal: No Musculoskeletal: No Endocrine: No HEENT: Yes Cataract Cancer: No Psychosocial: No Integumentary: No Blood Disorders: No Family Medical History Cancer Physical Exam Vital Signs Vital Signs - First Documented 05/17/21 05/17/21 10:19 11:34 Temp 36.3 Pulse 110 Resp 18 B/P (MAP) 148/98 (115) Pulse Ox 97 O2 Delivery Room Air Capillary Refill : Less Than 3 Seconds General Appearance: WD/WN, no apparent distress HEENT: PERRL/EOMI, other (normal pink conjunctivae) Cardiovascular: regular rate, rhythm Respiratory: lungs clear, normal breath sounds, no respiratory distress Gastrointestinal: non tender, soft Extremities: normal range of motion Neurologic/Psychiatric: alert Skin: warm/dry, other (Large fungating mass left lateral breast with central lateral shallow ulceration of 1-1/2 x 1-1/2 cm. No active bleeding. Nontender.) Progress/Results/Core Measures Results/Orders Vital Signs/I&O 05/17/21 05/17/21 10:19 11:34 Temp 36.3 Pulse 110 97 Resp 18 18 B/P (MAP) 148/98 (115) 131/78 Pulse Ox 97 96 O2 Delivery Room Air Blood Pressure Mean: 115 Progress Progress Note : Time: 10:39 Progress Note Discussed with Dr. Gamble. General wound care. Hold pressure if bleeding. Reassurance. Departure Impression Primary Impression: Wound, breast Qualified Codes: S21.002A - Unspecified open wound of left breast, initial encounter Disposition: 01 HOME, SELF-CARE Condition: Stable Departure-Patient Inst. Decision time for Depature: 10:42 Referrals: EMILY GAMBLE DO NO,LOCAL PHYSICIAN (PCP) Primary Care Physician Patient Instructions: Wound Care ED Add. Discharge Instructions: Keep a Vaseline gauze dressing over the tumor area, covered by dry gauze. Be careful not to hit the tumor on anything. If you notice any bleeding that recurs hold pressure and come to the emergency department. Keep your follow-up appointment with Dr. Gamble. ROB CHAVEZ MD May 17, 2021 10:43
[2021-05-17 11:34] VITALS: BP 131/78
== END 2021-05-17 11:28 | disposition home or self-care (01) ==
LOC: EDUNIT# 09:58 → ER 10:02
DX: S21.002A Unspecified open wound of left breast, initial encounter (principal); X58.XXXA Exposure to other specified factors, initial encounter
CPT/HCPCS: 99282

== ENCOUNTER 2021-05-18 05:39 | Outpatient (CLI) | payer MEDICARE, OTHER ==
[~2021-05-18] VITALS: Ht 157.5 cm; Wt 50.0 kg
[2021-05-19] MEDS ORDERED: ANAS1TAB50 PO (12:53)
[2021-05-19] MEDS ORDERED: DIPH25CA79 PO (12:53)
[2021-05-19] MEDS ORDERED: MELA10CA2 PO (12:56)
[2021-05-19] MEDS ORDERED: MTP25TSR PO (12:56)
[2021-05-19] MEDS ORDERED: FULV250S3 IM (12:56)
== END 2021-05-19 13:23 | disposition home or self-care (01) ==
LOC: PREOP 05:39
PROVIDERS: ATTEND Surgery
DX: Z01.818 Encounter for other preprocedural examination (principal)

== ENCOUNTER 2021-05-25 10:05 | Day surgery (SDC) | payer MEDICARE, OTHER ==
[~2021-05-25] VITALS: Ht 157.4 cm; Wt 50.0 kg
[2021-05-25] VITALS (11 sets, daily range): BP systolic 104–151; BP diastolic 63–92
[~2021-05-25 10:05] MED LIST changes: +ANAS1TAB50 PO; +DIPH25CA79 PO; +FULV250S3 IM; +MELA10CA2 PO; +MTP25TSR PO
[2021-05-25] MEDS ORDERED: ceFAZolin INJECTION 1,000 MG VIAL IV ONE (10:15)
[2021-05-25] MEDS ORDERED: LACTATED RINGERS 1,000 ML IV PRN (10:15)
[2021-05-25] MEDS ORDERED: ceFAZolin INJECTION 1,000 MG ONE (10:35)
--- NOTE | 2021-05-25 10:47 | Progress Note-Pre Operative ---
Pre-Operative Progress Note H&P Reviewed The H&P was reviewed, patient examined and no changes noted. Time Seen by Provider: 10:45 Date H&P Reviewed: May 25, 2021 Time H&P Reviewed: 10:45 Pre-Operative Diagnosis: Left breast cancer, site marked EMILY GAMBLE DO May 25, 2021 10:47
[2021-05-25] MEDS ORDERED: LIDOCAINE/EPI 1%-1:200,000 (XYLOCAINE) 30 ML VIAL ONE (10:54)
[2021-05-25] MEDS ORDERED: FAMOTIDINE 20MG/2ML IV (PEPCID) IVP ONE (11:15)
[2021-05-25] MEDS ORDERED: ONDANSETRON 4 MG/2 ML (SDV) Z0FRAN IVP ONE ×2 (11:15→15:00)
[2021-05-25] MEDS ORDERED: LIDOCAINE PF 2% 5 ML (XYLOCAINE) VIAL ONE (11:21)
[2021-05-25] MEDS ORDERED: fentaNYL INJ 100 MCG/2 ML AMP ONE (11:21)
[2021-05-25] MEDS ORDERED: proPOfol 200 MG/20 ML (DIPRIVAN) VIAL IV ONE (11:21)
--- NOTE | 2021-05-25 12:24 | Progress Note-Post Operative ---
Post-Operative Progess Note Surgeon (s)/Air Export Coordinator (s) Surgeon EMILY GAMBLE DO Air Export Coordinator: Kenna Pre-Operative Diagnosis Left breast cancer, site marked Post-Operative Diagnosis same Procedure & Operative Findings Date of Procedure 05/25/21 Procedure Performed/Findings Simple Mastectomy with Axillary lymph node dissection Anesthesia Type LMA Estimated Blood Loss Estimated blood loss (mL): 200ml Specimens/Packing Specimens Removed left breast and axillary LN EMILY GAMBLE DO May 25, 2021 12:24
[2021-05-25] MEDS ORDERED: TRM50T PO (12:25)
--- NOTE | 2021-05-25 12:27 | Discharge Inst-Surgical ---
Discharge Inst-Surgical Depart Medication/Instructions New, Converted or Re-Newed RX: Transmitted to Pharmacy Patient Instructions Follow up Appt: Make appointment for 1 week. [phone] Instructions: No lifting greater than 20 pounds. No strenuous activity. May shower in 24 hours, no tub bath or soaking. Use incentive spirometer at home as directed. No Smoking Skin/Wound Care: May remove bandages in am. You need to leave the verona in place and come to office to have them removed. Symptoms to Report: Appetite Changes, Extremity Discoloration, Numbness/Tingling, Swelling Increased, Bleeding Excessive, Eyesight Changes, Pain Increased, Urine Color Change, Constipation(Persistent), Fever over 101 degree F, Pain/Pressure in chest, Urinating Difficulty, Cough Up/Vomit Blood, Heart Beat Irreg/Pounding, Pain/Pressure in jaw, Cramps in feet or legs, Lightheadedness, Pain/Pressure in shoulder, Diarrhea(Persistent), Memory Changes Suddenly, Questions/Concerns, Weight gain consecutive days, Dizziness/Fainting, Nausea/Vomiting, Shortness of Breath, Weight gain over 2 pounds If questions or concerns contact your physician Or seek help at emergency department. Activity Activity as Tolerated: Yes Activity Instructions: Avoid Stress to Incision Driving Instructions: No Driving/Refer to Dr. Song Discharge Diet: No Restrictions Diet After 24 Hours: Clear Liquid if Nauseous If Any Problems/Questions/Issu: Contact Your Physician, Go to Emergency Room Skin/Wound Care Infection Signs and Symptoms: Increased Redness, Foul Odor of Wound, Increased Drainage, Skin Itchy or Has a Rash, Increased Swelling, Temperature Above 101 F Bathing Instructions: Shower Stitches/Verona/Dermabond Dis: Care of EMILY Rojas DO May 25, 2021 12:27
[2021-05-25] MEDS ORDERED: BUPIVACAINE 0.25% 30 ML (SENSORCAINE) VIAL ONE (12:36)
[2021-05-25] MEDS ORDERED: SEVOFLURANE (ULTANE) 15 ML INHAL SOLN ONE (12:52)
[2021-05-25] MEDS ORDERED: morphine INJ 10 MG/ML 1ML (SYR OR VIAL) IVP ONE (13:00)
[2021-05-25] MEDS ORDERED: ONDANSETRON 4 MG/2 ML (SDV) Z0FRAN IVP PRN (13:00)
[2021-05-25] MEDS ORDERED: morphine INJ 10 MG/ML 1ML (SYR OR VIAL) ONE (13:03)
[2021-05-25] MEDS ORDERED: ONDANSETRON 4 MG/2 ML (SDV) Z0FRAN ONE (15:01)
--- NOTE | 2021-05-25 20:55 | OPERATIVE REPORT ---
DATE OF SERVICE: 05/25/2021 PREOPERATIVE DIAGNOSIS: Left breast cancer with fungating lesion POSTOPERATIVE DIAGNOSES: 1. Left breast cancer with fungating lesion. 2. Large axillary lymph nodes. PROCEDURES: 1. Simple mastectomy. 2. Axillary lymph node dissection. SURGEON: Joseph Stahl DO MANAGER STUDIO: Irving Pierson DO. ANESTHESIA: LMA. BLOOD LOSS: Approximately 200 mL. FLUIDS: Per anesthesia. POSTOPERATIVE CONDITION: Stable. INDICATION FOR PROCEDURE: The patient is an 80-year-old female who has left breast cancer that is metastatic and unfortunately has a large fungating lesion, needs to get this removed as basically a toilet or simple mastectomy. FINDINGS: The patient had large fungating lesion, but she had a lot of large lymph nodes going up into the axilla, had removed the bulk of these because she would not be getting any more radiation treatment. PROCEDURE NOTE: After informed consent was obtained, the patient was brought to the operating room, placed on the table in supine position. There had been a plan for possible wound VAC, and she had brought this into the operating room. When she was sterilely prepped and draped in normal fashion, I made an elliptical drawing around the breast and out, going around this large fungating mass down into the axilla, axilla felt firm, started with a #10 blade, made an incision down through the skin into subcutaneous tissue, then starting from just about the breast bone going laterally out into the axilla, then increased this incision deeply with Bovie electrocautery, taking care to try and control some of the bleeding. It is very vascular because of the large fungating tumor, went down along the inframammary fold, taking this from medial to lateral down to right on top of the pectoralis muscle, did not take the pectoralis fascia, thereby simple mastectomy, did go out, the tumor appeared to invade the muscle wall, did take some of the muscle while taking this tumor out, continued to be followed out into the axilla. In the axilla, there are enlarged lymph nodes, some we were able to leave attached with the specimen but there were two large ones that we had to go grab with Bovie electrocautery to cut thereby doing axillary lymph node dissection. There was a little bit of bleeding from two vessels. These were controlled with 3-0 Vicryl [id number]-de-[id number] suture. Bleeding from the skin and muscle was controlled with Bovie electrocautery. Once we were able to completely remove this, passed this off the table. Copiously irrigated with sterile water, control bleeding. There was no bleeding at the end of the case. I thought that we might need the wound VAC to get this closed but actually we were able to get this closed. We closed with first 3-0 Vicryl subcutaneous stitches to bring this together. About 8 of these were used and then closed the skin with verona. Area was cleaned and dried, pressure dressing placed. Anesthesia then did a nerve block and the patient was then transferred to recovery room in stable condition. Sponge, instrument and needle count correct at the end of the case. Job ID: [id number] DocumentID: [id number] Dictated Date: 05/25/2021 14:05:26 Production Recorder Date: 05/25/2021 20:54:13 Dictated By: JOSEPH STAHL DO
--- NOTE | 2021-05-26 14:30 | Anesthesia-General Post-Op ---
General Patient Condition Mental Status/LOC: Same as Preop Cardiovascular: Satisfactory Nausea/Vomiting: Present (Nausea, no vomiting) Respiratory: Satisfactory Pain: Controlled Complications: Absent Post Op Complications Complications None Follow Up Care/Instructions Patient Instructions None needed. Anesthesia/Patient Condition Patient Condition Patient was seen yesterday just prior to her discharge to home. She was doing well, only C/O minimal Lt axillary pain and some nausea as she got up to change clothes to get ready for discharge, stable vital signs, no apparent adverse anesthesia problems. TRINI DONALDSON DO May 26, 2021 14:30
== END 2021-05-25 15:30 ==
LOC: SDC 10:05 → EDSTATUS 13:00 → SDC 15:30
PROVIDERS: ATTEND Surgery
DX: C50.912 Malignant neoplasm of unspecified site of left female breast (principal); R59.0 Localized enlarged lymph nodes; C78.7 Secondary malignant neoplasm of liver and intrahepatic bile duct; I10 Essential (primary) hypertension; J44.9 Chronic obstructive pulmonary disease, unspecified; Z79.899 Other long term (current) drug therapy
CPT/HCPCS: 87081

== ENCOUNTER 2021-06-08 09:51 | Outpatient (RCR) | payer MEDICARE, OTHER ==
[~2021-06-08 09:51] MED LIST changes: +FULVESTRANT 250 MG/5 ML SYR (CANCER CENTER) IM SCH; +TRM50T PO
[2021-06-08 09:59] LABS: BASOPHILS # (AUTO) 0.1 10^3/uL (0.0-0.1); BASOPHILS % (AUTO) 1 % (0-10); EOSINOPHILS # (AUTO) 0.2 10^3/uL (0.0-0.3); EOSINOPHILS % (AUTO) 2 % (0-10); HEMATOCRIT 32 % (35-52); HEMOGLOBIN 9.9 g/dL (11.5-16.0); LYMPHOCYTES # (AUTO) 1.9 10^3/uL (1.0-4.0); LYMPHOCYTES % (AUTO) 18 % (12-44); MEAN CORPUSCULAR HEMOGLOBIN 30 pg (25-34); MEAN CORPUSCULAR HGB CONC 31 g/dL (32-36); MEAN CORPUSCULAR VOLUME 97 fL (80-99); MEAN PLATELET VOLUME 9.1 fL (9.0-12.2); MONOCYTES % (AUTO) 9 % (0-12); NEUTROPHILS # (AUTO) 7.7 10^3/uL (1.8-7.8); NEUTROPHILS % (AUTO) 71 % (42-75); PLATELET COUNT 387 10^3/uL (130-400)
[2021-06-08 10:20] LABS: ALBUMIN 3.7 GM/DL (3.2-4.5); BILIRUBIN,TOTAL 0.3 MG/DL (0.1-1.0); CALCIUM 9.7 MG/DL (8.5-10.1); CREATININE SERUM 0.74 MG/DL (0.60-1.30); TOTAL PROTEIN 8.4 GM/DL (6.4-8.2)
== END 2021-06-12 | disposition home or self-care (01) ==
LOC: ONC 09:51
PROVIDERS: ATTEND Internal Medicine Hematology & Oncology
DX: Z51.11 Encounter for antineoplastic chemotherapy (principal); C50.912 Malignant neoplasm of unspecified site of left female breast; C78.7 Secondary malignant neoplasm of liver and intrahepatic bile duct; D50.9 Iron deficiency anemia, unspecified
CPT/HCPCS: 80053; 85025; 96402; G0463; 99213

== ENCOUNTER → 2021-07-18 | Outpatient (CLI) | payer MEDICARE, OTHER ==
[~2021-07-18] MED LIST changes: +CATHETER FLUSH 10 ML SYR IV PRN; -FULVESTRANT 250 MG/5 ML SYR (CANCER CENTER) IM SCH; +HOLD METFORMIN - RECEIVED CONTRAST 20 ML VIAL IV SCH; +IOHEXOL 350 MG/ML 100 ML (OMNIPAQUE 350) VIAL IV ONE; +NS 100 ML (IVPB) BAG IV ONE
--- NOTE | 2021-07-18 12:04 | Diagnostic Imaging Report ---
PROCEDURE: CT of the chest and pelvis with contrast and CT of the abdomen with and without contrast. TECHNIQUE: Precontrast acquisitions were acquired through the abdomen. Multiple contiguous axial images were obtained through the chest, abdomen and pelvis after administration of intravenous contrast. Auto Exposure Controls were utilized during the CT exam to meet ALARA standards for radiation dose reduction. INDICATION: Breast cancer, metastatic disease to the liver, history of mastectomy. COMPARISON: Exam compared with abdominopelvic CT of 11/10/2020 and with a chest CT of 10/24/2020. FINDINGS: There has been interval mastectomy with removal of the previous large left breast mass. Small residual nodule in the left axilla anterosuperiorly measures 10 mm in diameter. Previously, this same mass measured a 15 mm in diameter and there were multiple additional adjacent axillary diana masses. Contralateral right axilla is normal. Internal mammary chains are normal. Hilar and mediastinal lymph node stations are normal. There is no pleural or pericardial effusion. No lung mass or suspicious pulmonary nodule. There is some trace scarring or atelectasis in the left lung base. No findings felt suggestive of edema or pneumonia. There are degenerative changes to the spine but no discrete suspicious lytic or sclerotic osseous lesion is appreciable at CT ABDOMEN AND PELVIS: The dominant mass in the right hepatic lobe today measures 9.8 x 9.3 cm, previously about 5 to 6 cm in diameter. A second lesion in the posteromedial right hepatic lobe near the dome was not clearly changed at approximately 3 cm. The left lobe appeared nonfocal. New mass at the opal hepatis at 3.4 x 2.2 cm, likely metastatic node. Pancreas is unremarkable. The spleen is normal in size. There are nonaneurysmal atherosclerotic vascular calcifications. There are a few renal cysts, chronic. No acute urinary tract pathology. There is no ascites. The pelvic sidewalls and ilioinguinal lymph node chains are unremarkable. There is a minute amount of pelvic free fluid. There is no bowel or biliary tract obstruction. No identifiable adnexal lesion. The uterus is atrophic. The adrenals are negative. IMPRESSION: 1. Chest: Interval mastectomy and marked improvements in ipsilateral left axillary adenopathy. No adverse interval development or acute finding in the chest. 2. Abdomen and pelvis: Progressive hepatic metastatic disease with some perihepatic opal hepatis adenopathy, new. No suspicious bony finding. No bowel, biliary, or urinary tract obstruction. Dictated by: Dictated on workstation # [id number]
== END ==
LOC: RAD 10:15
PROVIDERS: ATTEND Internal Medicine Hematology & Oncology
DX: C50.919 Malignant neoplasm of unspecified site of unspecified female breast (principal); C78.7 Secondary malignant neoplasm of liver and intrahepatic bile duct; Z90.10 Acquired absence of unspecified breast and nipple
CPT/HCPCS: 71260; 74178

== ENCOUNTER 2021-08-09 14:10 | Outpatient (RCR) | payer MEDICARE, OTHER ==
[2021-07-12 14:20] LABS: BASOPHILS % (AUTO) 1 % (0-10); EOSINOPHILS # (AUTO) 0.2 10^3/uL (0.0-0.3); EOSINOPHILS % (AUTO) 2 % (0-10); HEMATOCRIT 36 % (35-52); HEMOGLOBIN 11.5 g/dL (11.5-16.0); LYMPHOCYTES # (AUTO) 1.9 10^3/uL (1.0-4.0); LYMPHOCYTES % (AUTO) 23 % (12-44); MEAN CORPUSCULAR HEMOGLOBIN 30 pg (25-34); MEAN CORPUSCULAR HGB CONC 32 g/dL (32-36); MEAN CORPUSCULAR VOLUME 92 fL (80-99); MEAN PLATELET VOLUME 9.9 fL (9.0-12.2); MONOCYTES # (AUTO) 0.9 10^3/uL (0.0-1.0); MONOCYTES % (AUTO) 11 % (0-12); NEUTROPHILS # (AUTO) 5.4 10^3/uL (1.8-7.8); NEUTROPHILS % (AUTO) 64 % (42-75); PLATELET COUNT 245 10^3/uL (130-400); WHITE BLOOD COUNT 8.5 10^3/uL (4.3-11.0)
[2021-07-12 14:40] LABS: ALBUMIN 3.9 GM/DL (3.2-4.5); BILIRUBIN,TOTAL 0.3 MG/DL (0.1-1.0); CALCIUM 10.1 MG/DL (8.5-10.1); CREATININE SERUM 0.8 MG/DL (0.60-1.30); POTASSIUM 4.4 MMOL/L (3.6-5.0)
[~2021-08-09 14:10] MED LIST changes: -CATHETER FLUSH 10 ML SYR IV PRN; +FULVESTRANT 250 MG/5 ML SYR (CANCER CENTER) IM SCH; -HOLD METFORMIN - RECEIVED CONTRAST 20 ML VIAL IV SCH; -IOHEXOL 350 MG/ML 100 ML (OMNIPAQUE 350) VIAL IV ONE; -NS 100 ML (IVPB) BAG IV ONE
[2021-08-09 14:43] LABS: BASOPHILS # (AUTO) 0.1 10^3/uL (0.0-0.1); BASOPHILS % (AUTO) 1 % (0-10); EOSINOPHILS # (AUTO) 0.1 10^3/uL (0.0-0.3); EOSINOPHILS % (AUTO) 1 % (0-10); HEMATOCRIT 39 % (35-52); HEMOGLOBIN 12.3 g/dL (11.5-16.0); LYMPHOCYTES # (AUTO) 1.7 10^3/uL (1.0-4.0); LYMPHOCYTES % (AUTO) 23 % (12-44); MEAN CORPUSCULAR HEMOGLOBIN 29 pg (25-34); MEAN CORPUSCULAR HGB CONC 32 g/dL (32-36); MEAN CORPUSCULAR VOLUME 90 fL (80-99); MEAN PLATELET VOLUME 9.5 fL (9.0-12.2); MONOCYTES # (AUTO) 0.6 10^3/uL (0.0-1.0); MONOCYTES % (AUTO) 9 % (0-12); NEUTROPHILS # (AUTO) 4.9 10^3/uL (1.8-7.8); NEUTROPHILS % (AUTO) 67 % (42-75); PLATELET COUNT 305 10^3/uL (130-400); WHITE BLOOD COUNT 7.3 10^3/uL (4.3-11.0)
[2021-08-09 15:03] LABS: ALBUMIN 3.7 GM/DL (3.2-4.5); BILIRUBIN,TOTAL 0.4 MG/DL (0.1-1.0); CALCIUM 9.8 MG/DL (8.5-10.1); CREATININE SERUM 0.73 MG/DL (0.60-1.30); POTASSIUM 3.8 MMOL/L (3.6-5.0); TOTAL PROTEIN 9.4 GM/DL (6.4-8.2)
== END 2021-08-10 | disposition home or self-care (01) ==
LOC: ONC 14:10
PROVIDERS: ATTEND Internal Medicine Hematology & Oncology
DX: Z45.2 Encounter for adjustment and management of vascular access device (principal); C50.912 Malignant neoplasm of unspecified site of left female breast; C78.7 Secondary malignant neoplasm of liver and intrahepatic bile duct; D50.9 Iron deficiency anemia, unspecified
CPT/HCPCS: 80053; 85025; 96372; G0463; 36415; 86300; 96402; 99213

== ENCOUNTER 2021-09-07 13:53 | Outpatient (RCR) | payer MEDICARE, OTHER ==
[~2021-09-07 13:53] MED LIST changes: +FULVESTRANT 250 MG/5 ML (FASLODEX) IM SCH; -FULVESTRANT 250 MG/5 ML SYR (CANCER CENTER) IM SCH
[2021-09-07 14:01] LABS: BASOPHILS # (AUTO) 0.1 10^3/uL (0.0-0.1); BASOPHILS % (AUTO) 1 % (0-10); EOSINOPHILS # (AUTO) 0.2 10^3/uL (0.0-0.3); EOSINOPHILS % (AUTO) 2 % (0-10); HEMATOCRIT 36 % (35-52); HEMOGLOBIN 11.6 g/dL (11.5-16.0); LYMPHOCYTES # (AUTO) 1.7 10^3/uL (1.0-4.0); LYMPHOCYTES % (AUTO) 23 % (12-44); MEAN CORPUSCULAR HEMOGLOBIN 28 pg (25-34); MEAN CORPUSCULAR HGB CONC 32 g/dL (32-36); MEAN CORPUSCULAR VOLUME 89 fL (80-99); MEAN PLATELET VOLUME 9.8 fL (9.0-12.2); MONOCYTES # (AUTO) 0.9 10^3/uL (0.0-1.0); MONOCYTES % (AUTO) 12 % (0-12); NEUTROPHILS # (AUTO) 4.6 10^3/uL (1.8-7.8); NEUTROPHILS % (AUTO) 62 % (42-75); PLATELET COUNT 232 10^3/uL (130-400); WHITE BLOOD COUNT 7.5 10^3/uL (4.3-11.0)
[2021-09-07 14:21] LABS: ALBUMIN 3.7 GM/DL (3.2-4.5); BILIRUBIN,TOTAL 0.4 MG/DL (0.1-1.0); CALCIUM 9.9 MG/DL (8.5-10.1); CREATININE SERUM 0.83 MG/DL (0.60-1.30); POTASSIUM 4.4 MMOL/L (3.6-5.0)
== END 2021-09-09 ==
LOC: ONC 13:53
PROVIDERS: ATTEND Internal Medicine Hematology & Oncology
DX: C50.912 Malignant neoplasm of unspecified site of left female breast (principal); C78.7 Secondary malignant neoplasm of liver and intrahepatic bile duct; D50.0 Iron deficiency anemia secondary to blood loss (chronic); F41.9 Anxiety disorder, unspecified; I10 Essential (primary) hypertension; Z98.890 Other specified postprocedural states
CPT/HCPCS: 80053; 85025; 86300; G0463; 36415; 99213

== ENCOUNTER 2021-10-05 14:22 | Outpatient (RCR) | payer MEDICARE, OTHER ==
[2021-09-13 14:32] LABS: BASOPHILS # (AUTO) 0.1 10^3/uL (0.0-0.1); BASOPHILS % (AUTO) 1 % (0-10); EOSINOPHILS # (AUTO) 0.1 10^3/uL (0.0-0.3); EOSINOPHILS % (AUTO) 2 % (0-10); HEMATOCRIT 39 % (35-52); HEMOGLOBIN 12.2 g/dL (11.5-16.0); LYMPHOCYTES # (AUTO) 1.9 10^3/uL (1.0-4.0); LYMPHOCYTES % (AUTO) 23 % (12-44); MEAN CORPUSCULAR HEMOGLOBIN 28 pg (25-34); MEAN CORPUSCULAR HGB CONC 32 g/dL (32-36); MEAN CORPUSCULAR VOLUME 90 fL (80-99); MEAN PLATELET VOLUME 9.9 fL (9.0-12.2); MONOCYTES # (AUTO) 0.9 10^3/uL (0.0-1.0); MONOCYTES % (AUTO) 11 % (0-12); NEUTROPHILS # (AUTO) 5.4 10^3/uL (1.8-7.8); NEUTROPHILS % (AUTO) 64 % (42-75); PLATELET COUNT 255 10^3/uL (130-400); WHITE BLOOD COUNT 8.5 10^3/uL (4.3-11.0)
[2021-09-13 14:49] LABS: ALBUMIN 3.8 GM/DL (3.2-4.5); BILIRUBIN,TOTAL 0.5 MG/DL (0.1-1.0); CALCIUM 10.1 MG/DL (8.5-10.1); CREATININE SERUM 0.76 MG/DL (0.60-1.30); POTASSIUM 4.1 MMOL/L (3.6-5.0); TOTAL PROTEIN 9.8 GM/DL (6.4-8.2)
[2021-10-05 14:34] LABS: BASOPHILS % (AUTO) 1 % (0-10); EOSINOPHILS # (AUTO) 0.2 10^3/uL (0.0-0.3); EOSINOPHILS % (AUTO) 2 % (0-10); HEMATOCRIT 36 % (35-52); HEMOGLOBIN 11.5 g/dL (11.5-16.0); LYMPHOCYTES # (AUTO) 1.6 10^3/uL (1.0-4.0); LYMPHOCYTES % (AUTO) 23 % (12-44); MEAN CORPUSCULAR HEMOGLOBIN 29 pg (25-34); MEAN CORPUSCULAR HGB CONC 32 g/dL (32-36); MEAN CORPUSCULAR VOLUME 89 fL (80-99); MEAN PLATELET VOLUME 10.2 fL (9.0-12.2); MONOCYTES # (AUTO) 0.7 10^3/uL (0.0-1.0); MONOCYTES % (AUTO) 10 % (0-12); NEUTROPHILS # (AUTO) 4.7 10^3/uL (1.8-7.8); NEUTROPHILS % (AUTO) 65 % (42-75); PLATELET COUNT 227 10^3/uL (130-400); WHITE BLOOD COUNT 7.2 10^3/uL (4.3-11.0)
[2021-10-05 14:57] LABS: ALBUMIN 3.7 GM/DL (3.2-4.5)
[2021-10-05 14:58] LABS: POTASSIUM 4.1 MMOL/L (3.6-5.0)
[2021-10-05 14:59] LABS: CALCIUM 9.8 MG/DL (8.5-10.1)
[2021-10-05 15:00] LABS: TOTAL PROTEIN 9.8 GM/DL (6.4-8.2)
[2021-10-05 15:02] LABS: BILIRUBIN,TOTAL 0.6 MG/DL (0.1-1.0)
[2021-10-05 15:04] LABS: CREATININE SERUM 0.75 MG/DL (0.60-1.30)
== END 2021-10-10 | disposition home or self-care (01) ==
LOC: ONC 14:22
PROVIDERS: ATTEND Internal Medicine Hematology & Oncology
DX: C50.912 Malignant neoplasm of unspecified site of left female breast (principal); C78.7 Secondary malignant neoplasm of liver and intrahepatic bile duct; F41.1 Generalized anxiety disorder; D50.0 Iron deficiency anemia secondary to blood loss (chronic); Z98.890 Other specified postprocedural states
CPT/HCPCS: 80053; 85025; 93005; 96401; G0463; 36415; 86300; 99213

== ENCOUNTER 2021-11-08 14:24 | Outpatient (RCR) | payer MEDICARE, OTHER ==
[~2021-11-08 14:24] MED LIST changes: -FULVESTRANT 250 MG/5 ML (FASLODEX) IM SCH
[2021-11-08 14:48] LABS: BASOPHILS % (AUTO) 1 % (0-10); EOSINOPHILS # (AUTO) 0.1 10^3/uL (0.0-0.3); EOSINOPHILS % (AUTO) 2 % (0-10); HEMATOCRIT 35 % (35-52); HEMOGLOBIN 11.3 g/dL (11.5-16.0); LYMPHOCYTES # (AUTO) 1.6 10^3/uL (1.0-4.0); LYMPHOCYTES % (AUTO) 23 % (12-44); MEAN CORPUSCULAR HEMOGLOBIN 30 pg (25-34); MEAN CORPUSCULAR HGB CONC 33 g/dL (32-36); MEAN CORPUSCULAR VOLUME 91 fL (80-99); MEAN PLATELET VOLUME 9.6 fL (9.0-12.2); MONOCYTES # (AUTO) 0.9 10^3/uL (0.0-1.0); MONOCYTES % (AUTO) 14 % (0-12); NEUTROPHILS # (AUTO) 4.2 10^3/uL (1.8-7.8); NEUTROPHILS % (AUTO) 61 % (42-75); PLATELET COUNT 199 10^3/uL (130-400); WHITE BLOOD COUNT 6.8 10^3/uL (4.3-11.0)
[2021-11-08 15:04] LABS: ALBUMIN 3.6 GM/DL (3.2-4.5); BILIRUBIN,TOTAL 0.7 MG/DL (0.1-1.0); CALCIUM 9.8 MG/DL (8.5-10.1); CREATININE SERUM 0.81 MG/DL (0.60-1.30); POTASSIUM 4.1 MMOL/L (3.6-5.0)
== END 2021-11-09 ==
LOC: ONC 14:24
PROVIDERS: ATTEND Internal Medicine Hematology & Oncology
DX: C50.912 Malignant neoplasm of unspecified site of left female breast (principal); C78.7 Secondary malignant neoplasm of liver and intrahepatic bile duct; F41.1 Generalized anxiety disorder; D50.0 Iron deficiency anemia secondary to blood loss (chronic)
CPT/HCPCS: 80053; 85025; 86300; G0463; 36415; 99213